=== PATIENT | female | born 1985 | race Two or more races ===

== ENCOUNTER 2018-07-04 16:15 | Observation (INO) | payer MEDICAID | END 2018-07-04 18:50 | disposition home or self-care (01) | DRG 566 | LOC: LDRP 16:15 | PROVIDERS: ADMIT Specialist; ATTEND Specialist | DX: O46.93 Antepartum hemorrhage, unspecified, third trimester (principal); Z3A.35 35 weeks gestation of pregnancy | CPT/HCPCS: 59025; 76815; 81002; 82948; 82962; G0378 ==

== ENCOUNTER 2018-08-03 20:06 | Inpatient (IN) | payer MEDICAID ==
[~2018-08-03] VITALS: Ht 162.6 cm; Wt 95.3 kg
[2018-08-03] MEDS ORDERED: PREN-96 PO (22:46)
[2018-08-03] MEDS ORDERED: CALC500C3 PO (22:46)
[2018-08-04] MEDS ORDERED: LACTATED RINGER'S 1,000 ML IV SCH (00:04)
[2018-08-04] MEDS ORDERED: LACT. RINGERS/OXYTOCIN 20UNITS 1,000 ML IV SCH ×2 (00:04→04:18)
[2018-08-04] MEDS ORDERED: LIDOCAINE 2%HCL (LOCAL ANESTH.) INJ 20ML MDV ID ONE (00:15)
[2018-08-04] MEDS ORDERED: WITCH HAZEL-GLYCERIN PAD TOP PRN (00:15)
[2018-08-04] MEDS ORDERED: PHISODERM TOP SOLN 240ML BTL TOP PRN (00:15)
[2018-08-04] MEDS ORDERED: METHYLERGONOVINE MALEATE 0.2 MG/ML AMP IM PRN (00:15)
[2018-08-04] MEDS ORDERED: NALBUPHINE HCL 10 MG/1ml INJECTION IV PRN (00:15)
[2018-08-04] MEDS ORDERED: DERMOPLAST 60ML BOTTLE TOP PRN (00:15)
[2018-08-04 01:08] LABS: Basophils # (auto) 0.1 uL; Basophils % (auto) 0.7 % (0.0-2.0); Eosinophils # (auto) 0.4 uL; Eosinophils % (auto) 3.4 % (0.0-7.0); Hematocrit 34.2 % (36.0-46.0); Lymphocytes # (auto) 2.4 uL; Lymphocytes % (auto) 22.4 % (10.0-50.0); Mean Corpuscular Hemoglobin 24.6 pg (28.0-32.0); Mean Corpuscular Hgb Conc. 32.2 g/dL (32.0-36.0); Mean Corpuscular Volume 76.3 fL (80.0-100.0); Monocytes # (auto) 0.5 uL; Monocytes % (auto) 4.9 % (0.0-12.0); Neutrophils # (auto) 7.4 uL; Neutrophils % (auto) 68.6 % (37.0-80.0); Platelet Count (auto) 210 10^3/uL (140-450); Red Blood Cells 4.48 10^6/uL (4.0-5.20); Red Cell Distribution Width 17.7 % (11.8-14.3); White Blood Cell 10.8 10^3/uL (4.4-10.8)
[2018-08-04 01:18] LABS: INR 0.89 (0.9-1.15); Partial Thromboplastin Time 24.5 sec (23.78-33.04); Prothrombin Time 9.6 sec (9.27-12.13)
[2018-08-04 01:26] LABS: Albumin 2.6 g/dL (3.4-5.0); BUN/Creatinine Ratio 16.7; Calcium 8.8 mg/dL (8.5-10.1); Potassium 3.6 mmol/L (3.5-5.1)
[2018-08-04 01:28] LABS: Bilirubin, Total 0.3 mg/dL (0.2-1.0); Total Protein 6.2 g/dL (6.4-8.2)
[2018-08-04] MEDS ORDERED: ACCU-CHEK COMFORT CURVE STRIP VI SCH (02:00)
[2018-08-04 02:45] LABS: Urine Bacteria NONE SEEN /hpf (None Seen); Urine Blood Negative /uL (Negative); Urine Mucus FEW (None Seen); Urine Specific Gravity 1.005 (1.001-1.035); Urine WBC <1 /hpf (0 - 5)
[2018-08-04] MEDS ORDERED: TERBUTALINE SULFATE 1 MG/ML 1ML VIAL SC PRN (04:30)
[2018-08-04] MEDS ORDERED: ACETAMINOPHEN 325 MG TAB PO PRN (07:30)
[2018-08-04] MEDS ORDERED: IBUPROFEN 600 MG TAB PO PRN (07:30)
--- NOTE | 2018-08-04 09:35 | NUR ---
Ambulation: Patient OOB with standby assistance by RN. Patient ambulated to bathroom with steady gait. Patient able to void without difficulty. [facility] teaching provided with returned demonstration by patient. Clean gown provided and bed linen changed. Patient ambulated back to bed with steady gait and no distress noted.
[2018-08-04 11:10] VITALS: BP 121/59
[2018-08-04 15:05] VITALS: BP 107/56
--- NOTE | 2018-08-04 19:57 | NUR ---
Patient refusing to have TDAP administered right now and states "I want it later."Will follow up with patient to administer vaccine.
--- NOTE | 2018-08-04 20:15 | NUR ---
Patient requesting bottle for at this time. Patient states she is "not producing enough because baby has been eating for one hour and I don't think he is getting anything". Patient shown how to express correctly and colostrum was excreted. Patient states she will continue to breastfeed.
--- NOTE | 2018-08-04 20:31 | NUR ---
IV removal IV DC'd per order with sterile technique, catheter fully intact. Pressure dressing applied to site. Patient tolerated procedure well.
[2018-08-04 23:15] VITALS: BP 110/55
[2018-08-05 03:11] VITALS: BP 107/62
[2018-08-05 05:06] LABS: RPR Non Reactive (Non Reactive)
[2018-08-05] MEDS ORDERED: TETANUS-DIPTH-ACEL PERTUSSIS 0.5ML SYRG IM ONE (05:45)
--- NOTE | 2018-08-05 05:47 | NUR ---
Bottle-feeding Education: Patient encouraged to breastfeed. Benefits of and the risk of providing formula to was discussed. Patient verbalized understanding of the benefits and is aware of risk and insists on bottle-feeding. Formula provided and instruction on formula preparation from the [facility] booklet reviewed with patient.
--- NOTE | 2018-08-05 06:55 | NUR ---
Pt resting in bed. Alert and orientated. Updated on plan of care, pain management, possible dc home today. Verbalized understanding. Pain 0/10. Board updated. Call light in reach Sd rails upx2. Assessment completed. Vital signs taken. Research Administrator Zaid made rounds.
[2018-08-05] MEDS ORDERED: TUBERCULIN PPD 5 UNIT/0.1 ML ID ONE (07:15)
--- NOTE | 2018-08-05 09:30 | NUR ---
Discharge: Discharge instructions given as ordered. Pt encouraged to follow up with SUPPLY CHAIN TECHNICIAN as instructed. All questions and concerns addressed. Patient verbalized understanding. Medication reconciliation completed and copy given to patient. All required/requested vaccines given and copies of vaccinations given to patient. Patient encouraged to prepare to depart unit.
--- NOTE | 2018-08-05 10:00 | NUR ---
Discharge: Patient taken to vehicle via wheelchair with all personal belongings, accompanied by staff and family member. No distress noted at time of departure, no adverse changes in status since initial assessment.
== END 2018-08-05 10:00 | disposition home or self-care (01) | DRG 560 ==
LOC: OBSVTOIN 20:06 → LDRP 20:06
PROVIDERS: ADMIT Specialist; ATTEND Specialist
PROC: 10E0XZZ Delivery of Products of Conception, External Approach (ICD-10-PCS; principal; 2018-08-04)
DX: O24.429 Gestational diabetes mellitus in childbirth, unspecified control (principal); J45.909 Unspecified asthma, uncomplicated; O99.52 Diseases of the respiratory system complicating childbirth; Z37.0 Single live birth; Z3A.39 39 weeks gestation of pregnancy
CPT/HCPCS: 36415; 59025; 59409; 76818; 80053; 81001; 81002; 82948; 82962; 85025; 85610; 85730; 86592; 86850; 86900; 86901; 90715; 96365; 96366; G0378; J2590